=== PATIENT | female | born 2000 | race Caucasian/White ===

== ENCOUNTER 2021-09-25 23:54 | Emergency (ER) | payer OTHER, SELFPAY ==
--- NOTE | ~2021-09-25 | CT_ITS ---
EXAMINATION: CT abdomen pelvis w con EXAM DATE: 09/26/2021 01:16 INDICATION: n/v and diarrhea-rule out colitis . TECHNIQUE: Spiral CT of the abdomen and pelvis was performed following intravenous injection of 100 m L Omnipaque 350. Axial, coronal and sagittal images of the abdomen and pelvis were reviewed. The do se-length product (DLP) for this examination was 272.08 mGy-cm. The exposure was tailored according to patient size (auto mA exposure control), and iterative reconstruction (ASIR) was used as additiona l dose reduction technique. There is no prior study for comparison. FINDINGS: The liver, spleen, adrenal glands and pancreas are unremarkable. Gallbladder is unremarkab le. No biliary obstruction. Portal and splenic veins are patent. Kidneys enhance symmetrically. T here is no hydronephrosis. The uterus is unremarkable. Bilateral ovarian cyst probably physiologic or hemorrhagic. The bladder is unremarkable. There is no retroperitoneal or pelvic lymphadenopathy. The appendix is normal. There is mild ascending colonic wall thickening, and colonic fluid. Clinical correlation for enterocolitis. The stomach and small bowel are unremarkable. There is expected amou nt of colonic stool. No free intraperitoneal gas. The heart is normal in size. There are no angela cardial or pleural effusions. The lung bases are unremarkable. The bones are unremarkable. IMPRESSION: 1. Findings suspicious for enterocolitis. Reviewed, dictated and finalized at location [facility]
[2021-09-26 00:27] VITALS: BP 112/69; PULSE 63; RESP 18; TEMP 36.6; O2SAT 99
[2021-09-26 00:48] LABS: Basophils Percent Auto 0.2 % (0.2-1.2); Hematocrit 40.3 % (37.0-47.0); Hemoglobin 14.1 g/dL (12.0-15.0); Immature Granulocyte Absolute 0.04 K/mm3 (0.00-0.031); Immature Granulocyte Percent A 0.3 % (0-0.5); Lymphocytes Absolute Auto 1.21 K/mm3 (0.9-3.2); Lymphocytes Percent Auto 9.7 % (18.3-44.2); Mean Corpuscular Hemoglobin 31.1 pg (26-34); Mean Corpuscular Volume 88.8 fl (80-100); Mean Platelet Volume 8.9 fl (7.4-10.4); Monocytes Absolute Auto 0.2 K/mm3 (0.1-0.6); Monocytes Percent Auto 1.5 % (2.6-8.5); Neutrophils Percent Auto 88.3 % (45.5-73.1); Platelet Count Result 290 k/mm3 (150-375); Red Blood Count 4.54 M/mm3 (4.2-5.4); Red Cell Distribution Width 11.8 % (11.5-14.5); White Blood Count 12.5 K/mm3 (4.5-10.0)
[2021-09-26 00:59] LABS: Alanine Aminotransferase 27 U/L (4-35); Albumin Level 4.4 g/dL (3.5-5.1); Alkaline Phosphatase 55 U/L (38-126); Anion Gap 10 mmol/L (8-16); Aspartate Amino Transferase 38 U/L (14-36); Bilirubin,Total 0.5 mg/dL (0.2-1.3); Blood Urea Nitrogen 11 mg/dL (7-17); Calcium 9.2 mg/dL (8.4-10.2); Carbon Dioxide 19 mmol/L (22-30); Chloride 106 mmol/L (98-107); Estimated CRCL calculation 91 ml/min; Estimated Glomerular Filt Rate > 60; Glucose 101 mg/dL (65-110); Lipase 110 U/L (23-300); Sodium 135 mmol/L (137-145)
--- NOTE | 2021-09-26 01:17 | ED.GENADULT ---
HPI - General Adult General Chief complaint: Nausea/Vomiting/Diarrhea <Samuel KajalCheko KATE Rebollar BC - Last Filed: 09/26/21 02:17> Stated complaint: vomiting <Samuel Modi KATE Rebollar BC - Last Filed: 09/26/21 02:17> Time Seen by Provider: 09/26/21 00:15 <KATE Delong BC - Last Filed: 09/26/21 02:17> Source: patient <Samuel Modi KATE Rebollar BC - Last Filed: 09/26/21 02:17> Mode of arrival: ambulatory <Samuel KATE Baxter BC - Last Filed: 09/26/21 02:17> Limitations: no limitations <Samuel Modi KATE Rebollar BC - Last Filed: 09/26/21 02:17> History of Present Illness HPI narrative: Patient presents for evaluation of nausea, vomiting, diarrhea since 1300 today. She states she has had four episodes of diarrhea today. Normal bowel pattern is about once daily. She has not seen any blood or mucous in her stool. She reports chills but denies fever or abdominal pain per se. She has noted decreased urinary output but attributes that to frequent episodes of vomiting. She denies any vaginal bleeding or discharge. No history of abdominal surgeries. No recent sick contacts to her knowledge. No recent antibiotics. No recent travel. She denies any EtOH use. She does smoke marijuana but has not used in the last 48 hours. Denies other illicit drug use. States she had COVID in July 2020. She has received her COVID vaccination. No history of similar symptoms. She has experienced some dizziness earlier today and again tonight during an episode of vomiting. LMP one week ago. Compliant with OC. No additional complaints or concerns. <Samuel KATE Baxter BC - Last Filed: 09/26/21 02:17> Related Data Allergies/adverse reactions: Allergies Allergy/AdvReac Type Severity Reaction Status Date / Time No Known Allergies Allergy Verified 09/26/21 00:32 <KATE Delong BC - Last Filed: 09/26/21 02:17> Review of Systems Review of Systems: CONSTITUTIONAL: Reports chills. Denies fever. EYES: Denies visual changes, redness, or discharge. ENT: Denies rhinorrhea, congestion, sore throat, or otalgia. CARDIOVASCULAR: Denies chest pain, palpitations, or edema. RESPIRATORY: Denies cough or dyspnea. GASTROINTESTINAL: Reports nausea, vomiting, diarrhea. Denies abdominal pain. GENITOURINARY: Reports decreased urinary output. Denies dysuria or hematuria. SKIN: Denies rash or itching. MUSCULOSKELETAL: Denies back pain, joint pain, or myalgia. NEUROLOGIC: Denies headache, numbness, dizziness, or weakness. PSYCHIATRIC: Denies anxiety or depression. <KATE Delong BC - Last Filed: 09/26/21 02:17> PMFSH Past Medical History Medical History: Medical History (Updated 09/26/21 @ 02:14 by KATE Delong BC) No pertinent past medical history <KATE Delong BC - Last Filed: 09/26/21 02:17> Surgical History Surgical History: Surgical History No pertinent past surgical history <KATE Delong BC - Last Filed: 09/26/21 02:17> Family History Family History: Family History Mother No pertinent past medical history <KATE Delong BC - Last Filed: 09/26/21 02:17> Social History Social History: Social History Smoking status: Never smoker Alcohol intake: never Substance use: current Substance use type: marijuana Additional living arrangements comments: Lives with boyfriend Occupation/Education: student Gender identity (if verbalized by the patient): Female Sexual Orientation (if Verbalized by the Patient): Straight or Heterosexual Spiritual care concerns: No <KATE Delong BC - Last Filed: 09/26/21 02:17> Exam Narrative: GENERAL: Well-appearing, well-nourished, and in no acute distress. HEAD: Normocephali
[2021-09-26 01:22] LABS: Add Urine Microscopic? YES; Appearance Urine Clear (Clear); Bilirubin Urine Negative (Negative); Blood Urine Negative (Negative); Color Urine Yellow (Yellow); Glucose Urine UA Negative (Negative); Ketones Urine 2+ mg/dL (Negative); Leukocyte Esterase Ur Negative LEU/UL (Negative); Mucus Urine Rare /lpf; Nitrate Urine Negative (Negative); Protein Urine 1+ mg/dL (Negative); RBC Urine 0-2 /hpf (0-2); Squamous Epithelial Cell Urine Few /hpf (Few); Urobilinogen Urine Negative mg/dL (<2.0); WBC Urine 0-3 /hpf
[2021-09-26 01:26] LABS: Specific Grav Ur 1.041 (1.001-1.035)
[2021-09-26] MEDS: FAMOTIDINE 20 MG/2 ML VIAL IV PUSH (01:34)
[2021-09-26] MEDS: SODIUM CHLORIDE 0.9% IV 1,000 ML 999 ML IV CONT (01:34)
[2021-09-26] MEDS: ONDANSETRON INJ 4 MG/2 ML VIAL IV PUSH (01:34)
[2021-09-26 01:40] VITALS: BP 108/64; PULSE 78; RESP 16; O2SAT 100
[2021-09-26 01:51] LABS: Lactic Acid Reflex 0.9 mmol/L (0.7-2.1)
[2021-09-26 03:09] VITALS: BP 110/55; PULSE 79; RESP 16; O2SAT 98
[2021-09-27 02:33] LABS: SARS-CoV-2 RNA PCR Negative
== END 2021-09-26 03:10 | disposition home or self-care (01) ==
PROVIDERS: Nurse Practitioner; Emergency Provider Emergency Medicine
DX: R11.2 Nausea with vomiting, unspecified (principal); R19.7 Diarrhea, unspecified; Z20.822 Contact with and (suspected) exposure to COVID-19; Z86.16 Personal history of COVID-19
CPT/HCPCS: 36415; 74177; 80053; 81001; 81025; 83605; 83690; 85025; 87804; 96361; 96374; 96375; 99284; C9803; J2405; J7030; Q9967; U0003; U0005